=== PATIENT | female | born 1950 | race Caucasian/White ===

== ENCOUNTER 2018-05-19 07:14 | Day surgery (SDC) | payer MEDICARE, MEDICAID ==
[2018-05-19] MEDS ORDERED: Lactated Ringer's 500 ML IV ONE ×2 (07:28→09:34)
[2018-05-19] MEDS ORDERED: Propofol 10 mg/ml Inj (20 ML) ONE (08:00)
[2018-05-19] MEDS ORDERED: ePHEDrine 50 mg/ml Inj ONE (09:22)
[2018-05-19] MEDS ORDERED: Phenylephrine 10 mg/ml Inj ONE (09:29)
[2018-05-19 09:41] VITALS: TEMP 98; O2SAT 100
[2018-05-19 09:57] VITALS: BP 107/55; PULSE 74; RESP 23
== END 2018-05-19 10:40 | disposition home or self-care (01) ==
LOC: H.ENDO 07:14
PROVIDERS: ATTEND Internal Medicine Gastroenterology
DX: Z12.11 Encounter for screening for malignant neoplasm of colon (principal); E11.9 Type 2 diabetes mellitus without complications; E78.5 Hyperlipidemia, unspecified; I10 Essential (primary) hypertension; E66.9 Obesity, unspecified; K64.8 Other hemorrhoids
CPT/HCPCS: 45378; 82948; J2001; J2370; J2704; J7120